=== PATIENT | female | born 1955 | race Caucasian/White ===

== ENCOUNTER → 2016-11-25 | Outpatient (CLI) | payer BC ==
[~2016-11-25] MED LIST: ASPIR LOW81 MG PO; PREDNISONE20 MG PO; SYNTHROID0.025 MG PO; SYNTHROID0.088 MG PO
== END | disposition home or self-care (01) ==
LOC: US 08:53
DX: R10.11 Right upper quadrant pain (principal)

== ENCOUNTER 2017-10-15 07:18 | Emergency (ER) | payer BC ==
[~2017-10-15] VITALS: Ht 165.1 cm; Wt 72.6 kg
[2017-10-15 07:21] VITALS: BP 142/72
[2017-10-15] MEDS ORDERED: ZOFRAN ODT4 MG SL (09:42)
== END 2017-10-15 09:54 | disposition home or self-care (01) ==
LOC: ED 07:18
DX: S06.0X0A Concussion without loss of consciousness, initial encounter (principal); M54.2 Cervicalgia; Z88.1 Allergy status to other antibiotic agents; Z91.041 Radiographic dye allergy status; Z79.899 Other long term (current) drug therapy; Z79.82 Long term (current) use of aspirin; W18.09XA Striking against other object with subsequent fall, initial encounter; Y93.89 Activity, other specified; Y92.89 Other specified places as the place of occurrence of the external cause; Y99.8 Other external cause status

== ENCOUNTER → 2017-10-24 | Outpatient (CLI) | payer BC ==
[~2017-10-24] MED LIST changes: +ZOFRAN ODT4 MG SL
[2017-10-24 08:24] LABS: BASO % 0.4 % (0.0-1.0); EOS # 0.1 10*3/uL (0.0-0.4); EOS % 1.6 % (1.0-4.0); HEMATOCRIT 39.1 % (37.0-47.0); LYMPH # 2.9 10*3/uL (1.3-4.4); LYMPH % 53.6 % (27.0-41.0); MEAN CELL VOLUME 97.3 fl (81.0-99.0); MEAN CORPUSCULAR HGB 32.3 pg (27.0-31.0); MEAN CORPUSCULAR HGB CONC 33.2 g/dl (33.0-37.0); MEAN PLATELET VOLUME 10.7 fl (9.6-12.3); MONO # 0.4 10*3/uL (0.1-1.0); MONO % 7.7 % (3.0-9.0); NEUT % 36.5 % (47.0-73.0); PLATELET COUNT AUTOMATED 223 10*3/uL (130-400); RED BLOOD COUNT 4.02 10*6/uL (4.10-5.10); RED CELL DISTRI WIDTH 12.6 % (0-14.5); WHITE BLOOD COUNT 5.5 10*3/uL (4.8-10.8)
== END | disposition home or self-care (01) ==
LOC: LAB 08:07
PROVIDERS: Internal Medicine Rheumatology
DX: M31.6 Other giant cell arteritis (principal)

== ENCOUNTER → 2018-03-01 | Outpatient (CLI) | payer BC ==
[~2018-03-01] MED LIST changes: +IMITREX100 MG PO; +OMEPRAZOLE40 MG PO; +PROLIA60 MG/M1 SC; -SYNTHROID0.088 MG PO; +Synthroid,Lev100 MCG PO; +VITAMIN D-32000 UNI1 PO; +ZYRTEC10 MG PO
--- NOTE | ~2018-03-01 | ST ---
[place], [place] EXERCISE STRESS TEST REPORT NAME: KENN MCCOY UNIT #: [id number] ROOM: DOCTOR: MARIE CARROLL MD BIRTHDATE: [birth year] DOS: 03/01/2018 EXERCISE STRESS TEST INDICATIONS: Near syncope, fatigue. PROCEDURE: The patient walked on a full Abhishek protocol stress test for 8 minutes. Her resting heart rate of 64 increased to a maximum heart rate of 156, which represented 98% of her maximum predicted heart rate. She stopped for leg fatigue and did not have lightheadedness or chest pain. The resting electrocardiogram was normal. At peak exercise, she did have less than 1 mm of J-point depression in leads III, V5 and V6. However, all of these changes reverted to baseline within 30 seconds of recovery and did not recur in recovery. Moon treadmill score is 5.5 indicating a low risk for cardiac events. IMPRESSION: 1. Good exercise capacity without chest pain and with equivocal electrocardiographic changes. 2. Moon treadmill score of 5.5 consistent with low risk for cardiac events. 3. Low risk exercise myocardial stress test. MARIE CARROLL MD CM:STRESS:EXERCISE STRESS TEST REPORT [id number] MARIE CARROLL MD
--- NOTE | 2018-03-01 10:35 | NUR ---
INFORMED SIGNED CONSENT OBTAINED FOR STANDARD GXT WITH DR CARROLL. RESTING EKG NSR HR 64 BP 122/64 IN SUPINE POSITION, STANDING HR 66 BP 122/76. PT COMPLETED 8:00 OF A EDWIGE PROTOCOL WITH PT COMPLETING 2:00 OF STAGE III AT 3.4 MPH AN DA 14% GRADE. PT REACHED A PEAK HR OF 156 WHICH REPRESENTS 98% OF PREDICTED MAXIMUM AND A PEAK BP OF 144/62. NO ARRHYTHMIAS OR ST CHANGES SEEN. TEST TERMINATED DUE TO FATIGUE. LAST RECOVEYR HR OF 93 BP 124/68. PT IN STABLE CONDITION, HOME TO SELF.
== END | disposition home or self-care (01) ==
LOC: CARD 02:46
DX: R55 Syncope and collapse (principal); R53.83 Other fatigue

== ENCOUNTER → 2018-03-07 | Outpatient (CLI) | payer BC | END | disposition home or self-care (01) | LOC: CARD 03-06 08:30 | DX: I08.1 Rheumatic disorders of both mitral and tricuspid valves (principal); R53.83 Other fatigue; R55 Syncope and collapse ==

== ENCOUNTER → 2019-11-04 | Outpatient (CLI) | payer BC | END | disposition home or self-care (01) | LOC: CT 10-28 09:00 | PROVIDERS: ATTEND Family Medicine | DX: G43.009 Migraine without aura, not intractable, without status migrainosus (principal) ==

== ENCOUNTER → 2020-01-12 | Outpatient (CLI) | payer BC | END | disposition home or self-care (01) | LOC: US 14:44 | PROVIDERS: ATTEND Family Medicine | DX: E01.0 Iodine-deficiency related diffuse (endemic) goiter (principal) ==

== ENCOUNTER → 2020-02-19 | Outpatient (CLI) | payer BC | END | disposition home or self-care (01) | LOC: COVID19 14:11 | PROVIDERS: ATTEND Family Medicine | DX: Z20.822 Contact with and (suspected) exposure to COVID-19 (principal) ==

== ENCOUNTER → 2020-08-30 | Outpatient (CLI) | payer BC | END | disposition home or self-care (01) | LOC: RAD 08-23 10:00 | PROVIDERS: ATTEND Family Medicine | DX: M85.80 Other specified disorders of bone density and structure, unspecified site (principal); Z79.52 Long term (current) use of systemic steroids ==

== ENCOUNTER → 2021-07-21 | Outpatient (CLI) | payer BC | END | disposition home or self-care (01) | LOC: MAMMO 12:26 | PROVIDERS: ATTEND Family Medicine | DX: Z12.31 Encounter for screening mammogram for malignant neoplasm of breast (principal) ==

== ENCOUNTER → 2022-06-13 | Outpatient (CLI) | payer MEDICARE ==
[~2022-06-13] MED LIST changes: +ADVIL200 M1 PO; +CYMBALTA60 MG PO; +Carafate1 GM PO; +DELTASONE1 MG PO; +MULTI-VITAMIN1 EACH PO; +PANTOPRAZOLE SO40 MG PO; +SYNTHROID,LEVO88 MCG PO; -Synthroid,Lev100 MCG PO
== END | disposition home or self-care (01) ==
LOC: CT 00:58
PROVIDERS: ATTEND Internal Medicine
DX: J98.8 Other specified respiratory disorders (principal)

== ENCOUNTER → 2022-12-04 | Outpatient (CLI) | payer MEDICARE | END | disposition home or self-care (01) | LOC: US 11-30 09:00 | PROVIDERS: ATTEND Internal Medicine | DX: M79.662 Pain in left lower leg (principal) ==

== ENCOUNTER → 2022-12-11 | Outpatient (CLI) | payer MEDICARE | END | disposition home or self-care (01) | LOC: MAMMO 08-14 10:00 → RAD 08-14 10:30 → MAMMO 08-28 10:00 → RAD 08-28 10:30 | PROVIDERS: ATTEND Internal Medicine | DX: Z12.31 Encounter for screening mammogram for malignant neoplasm of breast (principal); M81.0 Age-related osteoporosis without current pathological fracture; M85.88 Other specified disorders of bone density and structure, other site ==

== ENCOUNTER 2023-02-24 08:05 | Emergency (ER) | payer MEDICARE ==
[~2023-02-24] VITALS: Ht 165.1 cm; Wt 74.8 kg
[2023-02-24 08:13] VITALS: BP 113/74
[2023-02-24] MEDS ORDERED: VALIUM5 MG PO (09:22)
[2023-02-24] MEDS ORDERED: MELOXICAM15 MG PO (09:22)
== END 2023-02-24 09:26 | disposition home or self-care (01) ==
LOC: ED 08:05
DX: S46.811A Strain of other muscles, fascia and tendons at shoulder and upper arm level, right arm, initial encounter (principal); S46.011A Strain of muscle(s) and tendon(s) of the rotator cuff of right shoulder, initial encounter; Z91.041 Radiographic dye allergy status; Z88.1 Allergy status to other antibiotic agents; Z79.899 Other long term (current) drug therapy; Z90.711 Acquired absence of uterus with remaining cervical stump; X58.XXXA Exposure to other specified factors, initial encounter; Y93.89 Activity, other specified; Y92.89 Other specified places as the place of occurrence of the external cause; Y99.8 Other external cause status

== ENCOUNTER → 2023-04-24 | Outpatient (CLI) | payer MEDICARE ==
[~2023-04-24] MED LIST changes: +MELOXICAM15 MG PO; +VALIUM5 MG PO
== END | disposition home or self-care (01) ==
LOC: MRI 12:18
PROVIDERS: ATTEND Orthopaedic Surgery
DX: M19.011 Primary osteoarthritis, right shoulder (principal); M19.072 Primary osteoarthritis, left ankle and foot; M77.8 Other enthesopathies, not elsewhere classified; M77.52 Other enthesopathy of left foot and ankle; M75.41 Impingement syndrome of right shoulder

== ENCOUNTER → 2023-11-07 | Outpatient (CLI) | payer MEDICARE | END | disposition home or self-care (01) | LOC: RAD 12:11 | PROVIDERS: ATTEND Family Medicine | DX: U09.9 Post COVID-19 condition, unspecified (principal) ==

== ENCOUNTER → 2023-11-30 | Outpatient (CLI) | payer MEDICARE | END | disposition home or self-care (01) | LOC: US 10:28 | PROVIDERS: ATTEND Internal Medicine | DX: N89.8 Other specified noninflammatory disorders of vagina (principal); R10.2 Pelvic and perineal pain; Z90.710 Acquired absence of both cervix and uterus ==

== ENCOUNTER → 2023-12-04 | Outpatient (CLI) | payer MEDICARE ==
[~2023-12-04] MED LIST changes: +Albuterol Sulfate 2.5 MG/3 ML VIAL NEB ONE
== END | disposition home or self-care (01) ==
LOC: CP 01:33
PROVIDERS: ATTEND Internal Medicine
DX: R93.89 Abnormal findings on diagnostic imaging of other specified body structures (principal)

== ENCOUNTER → 2023-12-17 | Outpatient (CLI) | payer MEDICARE ==
[~2023-12-17] MED LIST changes: -Albuterol Sulfate 2.5 MG/3 ML VIAL NEB ONE
== END | disposition home or self-care (01) ==
LOC: MAMMO 08:30
PROVIDERS: ATTEND Internal Medicine
DX: Z12.31 Encounter for screening mammogram for malignant neoplasm of breast (principal); R92.323 Mammographic fibroglandular density, bilateral breasts

== ENCOUNTER 2024-04-16 21:49 | Emergency (ER) | payer MEDICARE, BC ==
[~2024-04-16] VITALS: Ht 167.6 cm; Wt 70.3 kg
[2024-04-16 22:03] VITALS: BP 127/54
[2024-04-16 22:13] LABS: BASO % 0.5 % (0.0-1.0); EOS # 0.1 10*3/uL (0.0-0.4); EOS % 1.9 % (1.0-4.0); HEMATOCRIT 37.9 % (37.0-47.0); MEAN CELL VOLUME 95.7 fl (81.0-99.0); MEAN CORPUSCULAR HGB 31.6 pg (27.0-31.0); MEAN PLATELET VOLUME 10.4 fl (9.6-12.3); MONO # 0.4 10*3/uL (0.1-1.0); MONO % 6.5 % (3.0-9.0); NEUT # 3.6 10*3/uL (2.3-7.9); NEUT % 54.7 % (47.0-73.0); PLATELET COUNT AUTOMATED 224 10*3/uL (130-400); RED BLOOD COUNT 3.96 10*6/uL (4.10-5.10); RED CELL DISTRI WIDTH 13.6 % (0-14.5); WHITE BLOOD COUNT 6.5 10*3/uL (4.8-10.8)
[2024-04-16 22:39] LABS: ALKALINE PHOSPHATASE 54 U/L (46-116); BUN 10 mg/dl (9-23); CHLORIDE 105 mmol/L (98-107); POTASSIUM 4.1 mmol/L (3.4-5.1); SGPT/ALT 10 U/L (5-49)
[2024-04-17] MEDS ORDERED: HYDROmorphONE Hydrochloride 0.5 MG/0.5 ML SYRINGE IV ONE (02:30)
[2024-04-17] MEDS ORDERED: Ondansetron Hydrochloride 4 MG/2 ML VIAL IV ONE (02:30)
[2024-04-17] MEDS ORDERED: Acetaminophen/Hydrocodone 5 MG/325 MG TABLET PO ONE (02:35)
[2024-04-17] MEDS ORDERED: Ondansetron Hydrochloride 4 MG TAB SL ONE (02:35)
== END 2024-04-17 02:42 | disposition home or self-care (01) ==
LOC: ED 21:49
PROVIDERS: Internal Medicine
DX: K82.8 Other specified diseases of gallbladder (principal); K21.9 Gastro-esophageal reflux disease without esophagitis; E03.9 Hypothyroidism, unspecified; Z79.899 Other long term (current) drug therapy; Z88.1 Allergy status to other antibiotic agents; Z88.8 Allergy status to other drugs, medicaments and biological substances; Z91.041 Radiographic dye allergy status; Z90.89 Acquired absence of other organs; Z90.710 Acquired absence of both cervix and uterus; Z98.890 Other specified postprocedural states